=== PATIENT | male | born 1965 | race Hispanic/Latino ===

== ENCOUNTER 2019-12-14 18:40 | Emergency (ER) | payer SELFPAY ==
[2019-12-14] MEDS ORDERED: Lidocaine 2% w/ Epi 1:200K 10 ML VIAL ONE (19:04)
[2019-12-14] MEDS ORDERED: Cephalexin 250 MG CAP ONE ×2 (20:00→20:19)
[2019-12-14] MEDS ORDERED: Cephalexin 250 MG CAP PO SCH (20:15)
== END 2019-12-14 20:20 | disposition home or self-care (01) ==
LOC: BURERS 18:40
DX: S71.111A Laceration without foreign body, right thigh, initial encounter (principal); W27.8XXA Contact with other nonpowered hand tool, initial encounter
CPT/HCPCS: 12004